=== PATIENT | male | born 1960 | race Caucasian/White ===

== ENCOUNTER 2020-05-02 13:40 | Emergency (ER) | payer SELFPAY ==
[2020-05-02 14:23] VITALS: BP 173/96; PULSE 89; RESP 16; TEMP 36.7; O2SAT 96; BMI 21.4
--- NOTE | 2020-05-02 14:31 | CTR_ITS ---
PROCEDURE INFORMATION: Exam: CT Head Without Contrast Exam date and time: 05/02/2020 3:50 PM Age: 60 years old Clinical indication: Pain; Visual disturbance; Headache not specified; Patient HX: Severe headache with blurred vision; Additional info: Severe has; No dx of migraines TECHNIQUE: Imaging protocol: Computed tomography of the head without contrast. Radiation optimization: All CT scans at this facility use at least one of these dose optimization techniques: automated exposure control; mA and/or kV adjustment per patient size (includes targeted exams where dose is matched to clinical indication); or iterative reconstruction. COMPARISON: No relevant prior studies available. RADIATION DOSE METRICS: Total DLP (mGy-cm): 875.82 FINDINGS: Brain: Minimal hypoattenuating foci are noted in the anterior lateral ventricular periventricular white matter bilaterally. No intracranial hemorrhage. No intracranial mass, or acute cortical infarction identified. Ventricles: Mild prominence of the ventricular system and subarachnoid spaces is consistent with the patient's age of 60 years. Bones/joints: Unremarkable. No acute fracture. Sinuses: Visualized sinuses are unremarkable. No fluid levels. Mastoid air cells: Visualized mastoid air cells are well aerated. Vasculature: Atherosclerotic calcifications are present involving the carotid artery siphons bilaterally. Soft tissues: Unremarkable. CT/CT head wo con* [id number] IMPRESSION: 1. Age appropriate supratentorial and infratentorial atrophy. 2. Chronic white matter microvascular ischemic disease. 3. No acute intracranial abnormality identified. Radiation Dose CTDIVOL = (mGy): DLP = 875.82 (mGy-cm)
[2020-05-02 16:01] LABS: Basophils # 0.1 10^3/uL (0.0-0.1); Basophils % 1.1 %; Eosinophils # 0.1 10^3/uL (0.0-0.8); Eosinophils % 1.3 %; Hematocrit 41.2 % (42.0-52.0); Hemoglobin 14.1 g/dL (11.7-16.6); Lymphocytes # 1.6 10^3/uL (0.8-4.8); Lymphocytes % 18.8 %; Mean Corpuscular HGB Conc 34.2 g/dL (30.0-36.0); Mean Corpuscular Hemoglobin 31.8 pg (28.0-34.0); Mean Platelet Volume 9.8 fL (7.4-10.4); Monocytes # 0.8 10^3/uL (0.2-0.9); Monocytes % 9.9 %; Neutrophils # 5.7 10^3/uL (1.8-7.7); Neutrophils % 68.7 %; Nucleated Red Blood Cells % 0 %; Platelet Count 179 10^3/cmm (130-400); Red Blood Count 4.43 10^6/uL (4.1-5.3); Red Cell Distribution Width 13.7 % (12.1-15.1); White Blood Count 8.3 10^3/uL (4.0-10.0)
[2020-05-02 16:17] LABS: Alanine Aminotransferase 84 U/L (0-41); Albumin Level 4.6 g/dL (3.5-5.2); Alkaline Phosphatase 55 IU/L (40-130); Anion Gap 20.6 (5-19); Aspartate Amino Transferase 125 U/L (0-40); Blood Urea Nitrogen 6 mg/dL (6-20); Calcium 8.8 mg/dL (8.5-10.5); Carbon Dioxide 21 mmol/L (22-29); Chloride 88 mmol/L (98-107); Globulin 2.8 g/dL (1.3-4.6); Glomerular Filtration Rate 170.8 mL/min (90-130); Glucose 84 mg/dL (65-115); Osmolality Calculated 255 mOsm/kg (285-295); Potassium 4.6 mmol/L (3.5-5.1); Sodium 125 mmol/L (136-145); Total Bilirubin 0.4 mg/dL (0.15-1.2); Total Protein 7.4 g/dL (6.6-8.7)
--- NOTE | 2020-05-02 17:10 | W.ED.HA ---
HPI - Headache General: Chief Complaint: Headache Stated Complaint: headache Time Seen by Provider: 05/02/20 16:55 Source: patient Mode of arrival: ambulatory Limitations: no limitations History of Present Illness: HPI Narrative: Patient comes in with a persistent headache on and off for the last 2 months. Patient states the headache started shortly after being increased of his lisinopril and hydrochlorothiazide to 20/25 mg. Patient stopped the lisinopril hydrochlorthiazide about 3 weeks ago and noticed improvement in his headache. However headache came back and seems to have been persistent since. Patient responds appropriately to questioning and has no focal neural deficits. Patient is alert and oriented. Patient is a COPD patient that continues to smoke. Patient appears in mild pain. Patient appears well. Review of Systems General: Reports: 10 or more systems reviewed and unremarkable except in HPI and below Neuro: Reports: headache(s) Physical Exam Const: COMMON NORMALS: no acute distress and patient oriented x3 GENERAL APPEARANCE: cooperative HENMT: COMMON NORMALS: normocephalic and Normal external nose present HEAD & SCALP: normal to inspection and normocephalic NOSE: Normal external nose present MOUTH: Normal oral and palatal mucosa present THROAT: posterior oropharynx normal Eye: GENERAL EYE: appearance normal, both eyes and all related structures Neck/C-Spine: COMMON NORMALS: full ROM Lymph: LYMPHATIC: no lymphadenopathy noted Chest: COMMONS NORMALS: normal inspection of the chest Resp: COMMON NORMALS: normal respiratory effort EFFORT & INSPECTION: Yes able to speak in complete sentences Cardio: COMMON NORMALS: regular rate and regular rhythm RATE: regular rate RHYTHM: regular rhythm GI: COMMON NORMALS: non-tender Back/Pelvis: COMMON NORMALS: thoracic and lumbar spine normal to inspection Extremity: COMMON NORMALS: normal to inspection Neuro: COMMON NORMALS: patient oriented x3 and moves all extremities Psych: COMMON NORMALS: mental status grossly normal and cooperative Skin: COMMON NORMALS: no rashes or lesions noted GENERAL SKIN EXAM: no rashes or lesions noted Course Vital Signs: Vital signs: Vital Signs Temperature 98.1 F 05/02/20 14:23 Pulse Rate 89 05/02/20 14:23 Respiratory Rate 16 05/02/20 14:23 Blood Pressure 173/96 05/02/20 14:23 Pulse Oximetry 96 05/02/20 14:23 MDM - Headache MDM Narrative: Medical decision making narrative: Patient comes in today for complaints of headache for about 2 months. Patient has been taking some Goody's extra strength daily for his headache with some minimal relief. On exam lungs are decreased in the bases, heart rates regular. Vital signs are normal except for some hypertension with a systolic of 170. No swelling is noted in the extremities. Auscultation of heart tones notes a regular rhythm. Differential diagnosis includes electrolyte imbalance, migraine, cerebral pathology, sinusitis, uncontrolled hypertension. Laboratory values noted a hyponatremia with a sodium of 125. Hemoglobin is 14, white blood cell count is 8.3, creatinine 0.5. When questioning patient is found the patient does drink routinely every day. Patient had also been recently on hydrochlorothiazide. Patient appears well without any focal neural deficits or other abnormality. We will treat patient's headache with 500 mL's of sodium chloride IV solution, 10 mg of metoclopramide, 25 mg of diphenhydramine and 10 mg of dexamethasone IV. I recommend the patient continue off his lisinopril with hydrochlorothiazide and to take lisinopril 20 mg daily to help improve his blood pressure. Patient should continue his atenolol. Recommend follow-up with primary care in 1 week. Recommend return to the ER for worsening symptoms or new concerns. Lab Data: Labs: Lab Results 05/02/20 05/02/20 Range/Units 15:45 15:45 WBC 8.3 (4.0-10.0) 10^3/ uL RBC 4.43 (4.1-5.3) 10^6/u L Hgb 14.1 (11.7-16.6) g/dL Hct 41.2 L (42.0-52.0) % MCV 93.0 (80-94) fL MCH 31.8 (28.0-34.0) pg MCHC 34.2 (30.0-36.0) g/dL RDW 13.7 (12.1-15.1) % Plt Count 179 (130-400) 10^3/c mm MPV 9.8 (7.4-10.4) fL Neut % (Auto) 68.7 % Lymph % (Auto) 18.8 % [place] % (Auto) 9.9 % Eos % (Auto) 1.3 % Baso % (Auto) 1.1 % Neut # (Auto) 5.7 (1.8-7.7) 10^3/u L Lymph # (Auto) 1.6 (0.8-4.8) 10^3/u L [place] # (Auto) 0.8 (0.2-0.9) 10^3/u L Eos # (Auto) 0.1 (0.0-0.8) 10^3/u L Baso # (Auto) 0.1 (0.0-0.1) 10^3/u L Nucleated RBC % (a uto) 0 % Nucleated RBCs # 0.0 /100WBC Sodium 125 L (136-145) mmol/L Potassium 4.6 (3.5-5.1) mmol/L Chloride 88 L (98-107) mmol/L Carbon Dioxide 21 L (22-29) mmol/L Anion Gap 20.6 H (5-19) BUN 6 (6-20) mg/dL Creatinine 0.5 L (0.7-1.2) mg/dL GFR Calculation 170.8 H (90-130) mL/min Glucose 84 (65-115) mg/dL Calculated Osmolal ity 255 L (285-295) mOsm/k g Calcium 8.8 (8.5-10.5) mg/dL Total Bilirubin 0.4 (0.15-1.2) mg/dL AST 125 H (0-40) U/L ALT 84 H (0-41) U/L Alkaline Phosphata se 55 (40-130) IU/L Total Protein 7.4 (6.6-8.7) g/dL Albumin 4.6 (3.5-5.2) g/dL Globulin 2.8 (1.3-4.6) g/dL Discharge Plan Discharge Patient Disposition: Home, Self-Care Clinical Impression: Hyponatremia Headache Qualifiers: Headache type: unspecified Headache chronicity pattern: acute headache Intractability: not intractable Qualified Code(s): R51 - Headache Hypertension Qualifiers: Hypertension type: unspecified Qualified Code(s): I10 - Essential (primary) hypertension Condition: Stable Prescriptions: New lisinopril 20 mg tablet 20 mg PO DAILY Qty: 30 RF: 0 No Action atenolol 50 mg Tablet 50 mg PO DAILY RF: 0 cetirizine 10 mg Tablet 10 mg PO DAILY PRN (Reason: allergies) RF: 0 albuterol sulfate 90 mcg/actuation Hfa Aerosol Inhaler 1 puff INHALATION QID PRN (Reason: Shortness Of Breath) RF: 0 Goody's Extra Strength 500-325-65 mg Powder In Packet 1 ea PO PRN PRN (Reason: headaches) RF: 0 Discharge Orders: Discharge Order (Routine); Ordered 05/02/20 Ordered By: Sim Meléndez Referrals: Chel Marion NP [Primary Care Provider] - Discharge Diet: Usual diet Discharge Activity: Increase activity as tolerated Patient Instructions: Acute Headache (ED) Activity Restrictions/Additional Instructions: Drink plenty of fluids. Stop lisinopril with hydrochlorothiazide. Take lisinopril 20 mg daily instead. Continue with atenolol daily as directed. Drink an electrolyte solution if sweating profusely along with water. Stop smoking. Limit alcohol consumption to just 2 drinks a day. Healthy diet and exercise. Follow-up with primary care in 1 week for recheck. Return to the ER for worsening symptoms or new concerns. Coding Level of Care Code ED Certified Driver Examiner for Majo Fwd Exam Comprehensive
[2020-05-02] MEDS: diphenhydrAMINE 50 mg/mL SDV 1mL 25 MG IVP (17:44)
[2020-05-02] MEDS: dexamethasone 10 mg/mL INJ IVP (17:45)
[2020-05-02] MEDS: metoclopramide 5 mg/mL SDV 2 mL 10 MG IVP (17:45)
[2020-05-02] MEDS: sodium chloride 0.9% 500 ML 999 ML IV (17:51)
[2020-05-02] MEDS: HYDROcodone-acetaminophen 7.5-325 mg Tablet 1 TAB PO (18:48)
[2020-05-02 19:04] VITALS: BP 129/81; PULSE 71; RESP 17; O2SAT 94
== END 2020-05-02 19:05 | disposition home or self-care (01) ==
PROVIDERS: Physician Assistant; Emergency Provider Nurse Practitioner Family; PCP Nurse Practitioner Family
DX: R51 Headache (principal); I10 Essential (primary) hypertension; E87.1 Hypo-osmolality and hyponatremia
CPT/HCPCS: 12345; 36415; 70450; 80053; 85025; 96374; 96375; 99282; 99283; J1100; J1200; J2765; J7040

== ENCOUNTER 2022-12-25 07:56 | Outpatient (CLI) | payer OTHER, SELFPAY ==
[2022-12-25 08:02] VITALS: BMI 26.6
--- NOTE | 2022-12-25 08:20 | ECG_ITS ---
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 Interpretive Statements NAME OF STUDY: LEXISCAN SESTAMIBI STRESS TEST INDICATION: Chest Pain, PROCEDURE: At the baseline, the EKG revealed normal sinus rhythm with a normal ST Ts. The baseline heart was 76 bpm with a blood pressue of 140/82 mm of Hg Lexiscan was infused over a period of 20 seconds. A total of 0.4 milligrams of Lexiscan was infused. The stress phase was continued for a total of 5 minutes. Heart rate at the end of the stress phase was 86 bpm with a blood pressure 135/76 mm of Hg. The EKG at the peak infusion revealed no significant changes. Sestamibi was injected 20 seconds after the Lexiscan infusion. Heart rate at the end of the recovery phase was 78 bpm with a blood pressure of 131/78 mm of Hg. CONCLUSION: 1. No significant EKG changes with the LexiScan infusion 2. No LexiScan induced chest pain or cardiac arrhythmia 3. Normal blood pressure and heart rate response 4. Sestamibi/sestamibi perfusion scan pending; see separate report. Electronically Signed On 01-02-2023 15:43:17 EXTRUSION OPERATOR by Mónica Wood M.D. [id number]
--- NOTE | 2022-12-25 08:20 | NMCV_ITS ---
NM marissa perf SPECT r/s* [id number] Jeferson Mitchell Age: 62 Gender: M : 1960 Exam Date: 12/25/2022 09:12 Ordering Phys: Mónica Wood MD ([email or web address]) Technologist: SEEMA Adams Exam Location: [facility] Indications: CORONARY ANGIOPLASTY STATUS; SHORTNESS OF BREATH STRESS TEST Please see separate stress test report in [facility] for full findings IMAGE PROTOCOL Rest/Stress 1 Lexiscan Day Radiopharmaceutical Dose (mCi) Administration Site Administered by Rest: Tc-99m 11.0 IV Luciano Lepe, CHEF FRENCH Sestamibi Stress:Tc-99m 32.8 IV Luciano Lepe, CHEF FRENCH Sestamibi Rest: 25-Dec-2022 60 Discovery 630 Stress: 25-Dec-2022 30 Discovery 630 0.4mg Lexiscan. Images obtained in supine and prone position. SPECT RESULTS Technical Quality: Excellent Raw Data Analysis: Normal Image Corrections: No attenuation or motion correction applied Summed Stress Score: 4 Summed Rest Score: 10 Summed Difference Score: 1 PERFUSION FINDINGS Moderate area of slightly decreased tracer uptake in the mid inferolateral, mid inferior, mid inferoseptal and apical lateral region, with the supine imaging. However with the prone imaging, there was no significant reversible defects FUNCTIONAL RESULTS (calculated via Gated SPECT) Stress Image LV EF (%): 77 Stress EDV (mL):84 TID: 1.04 Stress ESV (mL):19 FUNCTIONAL FINDINGS: Segmental wall motion analysis revealing no gross wall motion normalities. IMPRESSIONS 1. Myocardial perfusion imaging revealing moderate area of slightly decreased tracer uptake in the inferior, inferolateral, inferoseptal and apical lateral regions with an area of reversibility in the mid inferior region, suggesting ischemia in the distribution of the right coronary artery. However because of the inconsistency, the reliability is very poor. 2. Normal LV ejection fraction 77%. 3. LV wall motion analysis revealing no gross wall motion abnormalities. 4. Normal LV volume No similar previous studies are available for comparison Dr Mónica Wood MD [facility] (Electronically Signed) Final Date: 25 December 2022 12:29 S
[2022-12-25] MEDS: regadenoson 0.4 Mg/5 ml Syringe IVP (10:08)
[2022-12-25 10:33] VITALS: BP 131/78; PULSE 78
== END 2022-12-25 07:57 | disposition home or self-care (01) ==
PROVIDERS: PCP Nurse Practitioner Family; Visit Provider Internal Medicine Cardiovascular Disease
DX: R07.9 Chest pain, unspecified (principal); Z98.61 Coronary angioplasty status
CPT/HCPCS: 36415; 78452; 93017; 96374; A9500; J2785

== ENCOUNTER → 2022-12-29 16:37 | Outpatient (BNVA) | payer OTHER, SELFPAY | PROVIDERS: PCP Nurse Practitioner Family; Visit Provider Internal Medicine Pulmonary Disease | DX: J44.9 Chronic obstructive pulmonary disease, unspecified (principal); R06.02 Shortness of breath; Z71.6 Tobacco abuse counseling; Z12.2 Encounter for screening for malignant neoplasm of respiratory organs; I25.10 Atherosclerotic heart disease of native coronary artery without angina pectoris; T78.40XA Allergy, unspecified, initial encounter; F17.200 Nicotine dependence, unspecified, uncomplicated | CPT/HCPCS: 36415; 80053; 82785; 85025; 86003 ==

== ENCOUNTER 2023-01-13 12:33 | Outpatient (CLI) | payer OTHER, SELFPAY ==
--- NOTE | 2023-01-13 13:45 | CT_ITS ---
WS: [id number] LDCT LUNG CANCER SCREENING TECHNIQUE: Noncontrast CT of the chest with coronal and sagittal reformatted images. CLINICAL INFORMATION: cancer lung scree COMPARISON: None. DLP: 78.01 mGy.cm DIvol: Mean CTDIvol: 1.60 (mGy) All CT scans at [facility] use at least one of these dose optimization techniques: automat ed exposure control; mA and/or kV adjustment per patient size (includes targeted exams where dose is matched to clinical indication); or iterative reconstruction. FINDINGS: Moderate to advanced chronic emphysematous changes. No acute pulmonary infiltrates. A few c alcified granulomas. No suspicious pulmonary parenchymal abnormalities. Aortic calcification. Coronary calcification. No mediastinal or hilar lymphadenopathy. Calcified geovanna r lymph nodes. Normal GE junction. No axillary lymphadenopathy. Adrenal glands are normal. A few low-attenuation lesions in the liver likely hepatic cysts or hemangi omas. These can be followed up with contrast-enhanced CT abdomen pelvis with liver protocol. Largest measures 15 mm. Normal spleen. Adrenal glands are normal. CT/CT lung screening [id number] IMPRESSION:A few low-attenuation lesions in the liver likely hepatic cysts or h emangiomas. These can be followed up with contrast-enhanced CT abdomen pelvis w ith liver protocol. Largest measures 15 mm. No prior comparisons. LUNG-RADS: 1S-Negative with Significant Findings FOLLOW UP: 12 Month: Continue annual screening with LDCT
== END 2023-01-13 12:34 | disposition home or self-care (01) ==
LOC: RAD 12:35
PROVIDERS: PCP Nurse Practitioner Family; Visit Provider Internal Medicine Pulmonary Disease
DX: Z12.2 Encounter for screening for malignant neoplasm of respiratory organs (principal); J44.9 Chronic obstructive pulmonary disease, unspecified; F17.200 Nicotine dependence, unspecified, uncomplicated; R06.02 Shortness of breath
CPT/HCPCS: 71271

== ENCOUNTER 2023-01-21 08:49 | Outpatient (CLI) | payer MEDICARE, SELFPAY ==
[2023-01-21 09:13] VITALS: BP 151/90; BP 153/99; O2SAT 88; O2SAT 97
[2023-01-21 09:26] VITALS: PULSE 70; RESP 18; O2SAT 97
[2023-01-21] MEDS: albuterol 2.5 mg/3 mL Neb INHALATION (09:26)
[2023-01-21 09:30] VITALS: PULSE 76
== END 2023-01-21 08:50 | disposition home or self-care (01) ==
PROVIDERS: PCP Nurse Practitioner Family; Visit Provider Internal Medicine Pulmonary Disease
DX: F17.200 Nicotine dependence, unspecified, uncomplicated (principal); J44.9 Chronic obstructive pulmonary disease, unspecified; R06.02 Shortness of breath
CPT/HCPCS: 94060; 94618; 94726; 94729; 94760; J7613

== ENCOUNTER 2023-02-04 06:10 | Outpatient (CLI) | payer MEDICARE, SELFPAY ==
--- NOTE | 2023-02-04 06:30 | USCV_ITS ---
Jeferson Mitchell Age: 62 Gender: M : 1960 Exam Date: 02/04/2023 06:26 Ordering Phys: Mónica Wood MD ([email or web address]) Technologist: CONRADO [place] [facility] [place]: CHEST PAIN/ASHD BP: 165 / 90 HR: 63 Rhythm: Sinus Technical Quality: Adequate MEASUREMENTS (Male / Female) Normal Values 2D ECHO LVOT Diameter 2.0 cm LV Ejection Fraction MOD 2C 68.0 % LV Ejection Fraction 2C AL 70.1 % LA Diameter 2.8 cm LA Width 3.3 cm LA Height 4.3 cm RA Width 2.5 cm RA Height 4.2 cm Aorta at Sinotubular Diameter 2.5 cm IVC Diameter 1.6 cm M-MODE Aortic Annulus Diameter 3.1 cm LA Ao Ratio MM 1.0 MV E Point Septal Separation 0.4 cm DOPPLER AV Peak Velocity 118.0 cm/s LVOT Peak Velocity 81.0 cm/s AV Area Cont Eq vti 2.4 cm squared AV Area Cont Eq pk 2.2 cm squared MV Peak Velocity 80.0 cm/s MV Area PHT 3.9 cm squared Mitral E to A Ratio 1.4 MV E' Velocity 45.0 cm/s Mitral E to MV E' Ratio 6.9 Mitral E to LV E' Lateral Ratio 6.6 Mitral E to LV E' Septal Ratio 7.3 TR Peak Velocity 201.8 cm/s TR Peak Gradient 16.3 mmHg TR Mean Velocity 156.7 cm/s TR Mean Gradient 10.0 mmHg TR Velocity Time Integral 58.1 cm TV Peak E Velocity 37.0 cm/s Right Atrial Pressure 3.0 mmHg Pulmonary Artery Systolic Pressu 19.3 mmHg PV Peak Velocity 83.0 cm/s RV Acceleration Time 0.1 s RV Ejection Time 0.3 s RV AcT/ET 0.4 FINDINGS Left Ventricle Normal left ventricular size and systolic function, EF 67 %. No regional wall motion abnormalities. Right Ventricle The right ventricle is normal in size and function. Right Atrium The right atrium is normal in size. Left Atrium The left atrium is normal in size. Mitral Valve Trace mitral valve regurgitation. Aortic Valve Minimally thickened aortic valve Tricuspid Valve Trace tricuspid valve regurgitation. Pulmonic Valve Pulmonic valve not well visualized. Pericardium Normal pericardium without effusion. Aorta Normal aortic annulus size. IVC Normal inferior vena cava. CONCLUSIONS Normal left ventricular size and systolic function, EF 67 %. No regional wall motion abnormalities. Trace mitral valve regurgitation. Minimally thickened aortic valve. Trace tricuspid valve regurgitation. There is no pericardial effusion. There are no intracardiac masses. Estimated pulmonary artery peak systolic pressure was 19 mmHg No similar previous studies are available for comparison Dr Mónica Wood MD FAC (Electronically Signed) Final Date: 10 February 2023 23:50 S
== END 2023-02-04 06:11 | disposition home or self-care (01) ==
LOC: RAD 06:12
PROVIDERS: PCP Nurse Practitioner Family; Visit Provider Internal Medicine Cardiovascular Disease
DX: I25.10 Atherosclerotic heart disease of native coronary artery without angina pectoris (principal); R07.9 Chest pain, unspecified; R06.02 Shortness of breath
CPT/HCPCS: 36415; 80048; 83880; 93306

== ENCOUNTER → 2023-04-22 09:09 | Outpatient (BNVA) | payer MEDICARE, SELFPAY | PROVIDERS: PCP Nurse Practitioner Family; Referring Provider Internal Medicine Cardiovascular Disease; Visit Provider Internal Medicine Cardiovascular Disease | DX: I10 Essential (primary) hypertension (principal); I25.118 Atherosclerotic heart disease of native coronary artery with other forms of angina pectoris; R06.02 Shortness of breath; R94.39 Abnormal result of other cardiovascular function study | CPT/HCPCS: 80048; 80061; 80076; 83880; 85025; 85610 ==

== ENCOUNTER 2023-04-26 09:09 | Outpatient (CLI) | payer MEDICARE, SELFPAY ==
--- NOTE | 2023-04-26 09:24 | CT_ITS ---
WS: [id number] CT ABDOMEN AND PELVIS WITH AND WITHOUT CONTRAST HISTORY: ABNORMAL FINDINGS ON DIAGNOSTIC IMAGING OF LIVER TECHNIQUE: Unenhanced 5 mm axial imaging first performed through the abdomen. Post contrast imaging t hrough the abdomen and pelvis. Oral contrast has not been provided. Sagittal and coronal reformats a re submitted. All CT scans at [facility] use at least one of these dose optimization techniqu es: automated exposure control; mA and/or kV adjustment per patient size (includes targeted exams whe re dose is matched to clinical indication); or iterative reconstruction. CONTRAST: Omnipaque 350; 95 mL IV. DLP: 1905.03 mGy.cm COMPARISON: Lung screening 01/13/2023 Lung bases are clear. Normal size heart. No hiatal hernia. Normal size liver. There are several scattered areas of decreased attenuation without enhancement thr oughout both the RIGHT and LEFT lobes of the liver consistent with hepatic cysts. These correspond to the changes on the recent lung screening CT. The largest cyst measures 1.2 cm. No solid mass. Normal portal vein. No bile duct dilatation. Normal adrenal glands, gallbladder, pancreas, common bile duct. Splenic granulomata. Normal size sple en. No renal mass or obstruction. Mild atherosclerosis aorta. Normal enhancement of the mesenteric ar teries. No ascites or adenopathy. Normal stomach and small bowel. Prior appendectomy. No significant diverticular disease. There are on ly a few scattered diverticula without diverticulitis. Minimal prostate enlargement. There is mild diffuse bladder wall thickening which is likely due to un derdistention. No asymmetry. Mild degenerative disc disease in the lumbar spine. No fracture. CT/CT abdomen pelvis wo/w [id number] IMPRESSION: 1. Hepatic cysts. Hepatic cysts are present in the RIGHT and LEFT lobes of porsha er. No solid mass. 2. Normal gallbladder. 3. No adenopathy or ascites. 4. Prior appendectomy.
[2023-04-26] MEDS: iohexol 350 mg/mL 500 mL Btl (per mL) IV (10:00)
== END 2023-04-26 09:10 | disposition home or self-care (01) ==
PROVIDERS: PCP Nurse Practitioner Family; Visit Provider Nurse Practitioner Family
DX: R93.2 Abnormal findings on diagnostic imaging of liver and biliary tract (principal); K76.89 Other specified diseases of liver
CPT/HCPCS: 74178; Q9967

== ENCOUNTER → 2023-11-05 07:45 | Outpatient (BNVA) | payer MEDICARE, SELFPAY | PROVIDERS: PCP Nurse Practitioner Family; Visit Provider Internal Medicine Pulmonary Disease | DX: J43.2 Centrilobular emphysema (principal); Z71.6 Tobacco abuse counseling; Z12.2 Encounter for screening for malignant neoplasm of respiratory organs; I25.10 Atherosclerotic heart disease of native coronary artery without angina pectoris; J82.83 Eosinophilic asthma; Z87.891 Personal history of nicotine dependence | CPT/HCPCS: 99214 ==

== ENCOUNTER 2024-01-18 08:59 | Outpatient (CLI) | payer MEDICARE, SELFPAY ==
--- NOTE | 2024-01-18 09:30 | CT_ITS ---
WS: [id number] LDCT LUNG CANCER SCREENING TECHNIQUE: Noncontrast CT of the chest with coronal and sagittal reformatted images. CLINICAL INFORMATION: Cancer Screen COMPARISON: 2022 DLP: 72.69 mGy.cm DIvol: Mean CTDIvol: 1.50 (mGy) All CT scans at [facility] use at least one of these dose optimization techniques: automat ed exposure control; mA and/or kV adjustment per patient size (includes targeted exams where dose is matched to clinical indication); or iterative reconstruction. FINDINGS: Stable moderate to advanced chronic emphysematous changes. No acute pulmonary infiltrates. A few calc ified granulomas. No new suspicious pulmonary parenchymal abnormalities. Aortic calcification. Coronary calcification. No mediastinal or hilar lymphadenopathy. Calcified geovanna r lymph nodes. Normal GE junction. No axillary lymphadenopathy. Adrenal glands are normal. Similar-appearing hepatic cysts. Tiny esophageal hiatal hernia. IMPRESSION: CT/CT lung screening [id number] LUNG-RADS: 1-Negative FOLLOW UP: 12 Month: Continue annual screening with LDCT
== END 2024-01-18 09:00 | disposition home or self-care (01) ==
LOC: RAD 09:00
PROVIDERS: PCP Nurse Practitioner Family; Visit Provider Internal Medicine Pulmonary Disease
DX: Z12.2 Encounter for screening for malignant neoplasm of respiratory organs (principal); Z87.891 Personal history of nicotine dependence; J43.9 Emphysema, unspecified
CPT/HCPCS: 71271

== ENCOUNTER → 2024-07-27 11:15 | Outpatient (BNVA) | payer MEDICARE, SELFPAY | PROVIDERS: PCP Nurse Practitioner Family; Referring Provider Nurse Practitioner Family; Visit Provider Student in an Organized Health Care Education/Training Program | DX: Z12.11 Encounter for screening for malignant neoplasm of colon (principal) | CPT/HCPCS: 99024; 99204 ==